=== PATIENT | female | born 1955 | race Caucasian/White ===

== ENCOUNTER 2019-01-31 18:30 | Emergency (ER) | payer OTHER ==
[~2019-01-31] VITALS: Ht 167.6 cm; Wt 83.9 kg
[2019-01-31 20:48] VITALS: BP 172/76
[2019-01-31] MEDS ORDERED: DIPHTH,PERTUSS(ACELL),TET TOX 0.5 ML DISP.SYRIN. VAX IM ONE (22:00)
[2019-01-31] MEDS ORDERED: LIDOCAINE 1% PF 2 ML VIAL. INJ ONE ×2 (22:00→23:45)
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
[2019-02-01] MEDS ORDERED: CEPH500C PO (01:37)
[2019-02-01] MEDS ORDERED: HYDR-2761 PO (01:37)
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
[2019-02-01] MEDS ORDERED: HYDROcodone/APAP 5/325MG 1 TAB TABLET PO ONE (02:00)
== END 2019-02-01 02:10 | disposition home or self-care (01) ==
LOC: ER 18:30
DX: S61.223A Laceration with foreign body of left middle finger without damage to nail, initial encounter (principal); E78.00 Pure hypercholesterolemia, unspecified; K21.9 Gastro-esophageal reflux disease without esophagitis; Z88.2 Allergy status to sulfonamides; W23.0XXA Caught, crushed, jammed, or pinched between moving objects, initial encounter; Y93.89 Activity, other specified; Y92.89 Other specified places as the place of occurrence of the external cause; Y99.0 Civilian activity done for income or pay
CPT/HCPCS: 12004; 73140; 90471; 90715; 99283-25